=== PATIENT | male | born 1985 | race Caucasian/White ===

== ENCOUNTER 2019-07-20 13:44 | Emergency (ER) | payer OTHER ==
[2019-07-20] MEDS ORDERED: LORazepam 1 MG TAB PO STA (14:10)
--- NOTE | 2019-07-20 14:34 | ED ---
General Adult HPI - General Source: patient, police, EMS, RN notes reviewed, old records reviewed Mode of arrival: EMS Limitations: no limitations <Roc Urbina - Last Filed: 07/20/19 23:06> <Yao Olivo - Last Filed: 07/21/19 11:22> - General Chief complaint: Psychiatric Symptoms Stated complaint: Suicdal Time Seen by Provider: 07/20/19 14:03 - History of Present Illness Initial comments: 34-year-old male patient passed no history of hepatitis C, psychiatric disorders presents to ED for chief complaint of depression, suicidal ideations. Patient reports that he has been depressed for a long period of time. Reports that he has not taken his psychiatric medications in 1 week. Reports that he had a plan to hurt himself using a knife on his forearms. Denies any homicidal ideations. Denies any action to hurt himself or hurt any other people. Complains of feeling very anxious. Denies any physical complaints. Systemic: Pt denies fatigue, fever/chills, rash. Pt denies weakness, night sweats, weight loss. Neuro: Pt denies headache, visual disturbances, syncope or pre-syncope. HEENT: Pt denies ocular discharge or irritation, otalgia, rhinorrhea, pharyngitis or notable lymphadenopathy. Cardiopulmonary: Pt denies chest pain, SOB, heart palpitations, dyspnea on exertion. Abdominal/GI: Pt denies abdominal pain, n/v/d. : Pt denies dysuria, burning w/ urination, frequency/urgency. Denies new onset urinary or bowel incontinence. MSK: Pt denies myalgia, loss of strength or function in extremities. Neuro: Pt denies new onset weakness, paresthesias. (Roc Urbina) - Related Data Home Medications Medication Instructions Recorded Confirmed Gabapentin 800 mg PO TID 07/21/19 07/21/19 QUEtiapine [SEROquel] 400 mg PO HS 07/21/19 07/21/19 buPROPion HCL [Wellbutrin XL] 300 mg PO DAILY 07/21/19 07/21/19 Allergies Allergy/AdvReac Type Severity Reaction Status Date / Time fluphenazine [From Prolixin] Allergy Swelling Verified 07/21/19 09:28 haloperidol [From Haldol] Allergy Swelling Verified 07/21/19 09:28 Review of Systems ROS Other: All systems not noted in ROS Statement are negative. <Roc Urbina - Last Filed: 07/20/19 23:06> ROS Other: All systems not noted in ROS Statement are negative. <Yao Olivo - Last Filed: 07/21/19 11:22> ROS Statement: Those systems with pertinent positive or pertinent negative responses have been documented in the HPI. Past Medical History Past Medical History: Asthma Additional Past Medical History / Comment(s): hep c History of Any Multi-Drug Resistant Organisms: None Reported Past Surgical History: No Surgical Hx Reported Past Psychological History: Bipolar Smoking Status: Current every day smoker Past Alcohol Use History: Unable to Obtain Past Drug Use History: Unable to Obtain <Roc Urbina - Last Filed: 07/20/19 23:06> General Exam Limitations: no limitations <Roc Urbina - Last Filed: 07/20/19 23:06> - General Exam Comments Initial Comments: Constitutional: NAD, AOX3, Pt has pleasant affect. HEENT: NC/AT, trachea midline, neck supple, no lymphadenopathy. Posterior pharynx non erythematous, without exudates. External ears appear normal, without discharge. Mucous membranes moist. Eyes PERRLA, EOM intact. There is no scleral icterus. No pallor noted. Cardiopulmonary: RRR, no murmurs, rubs or gallops, no JVD noted. Lungs CTAB in anterior and posterior davies. No peripheral edema. Abdominal exam: Abdomen soft and non-distended. Abdomen non-tender to palpation in all 4 quadrants. Bowel sounds active in LLQ. No hepatosplenomegaly. No ecchymosis Neuro: CN II-XII grossly intact. No nuchal rigidity. No raccon eyes, no coates sign, no hemotympanum. No cervical spinal tenderness. MSK: No posterior calf tenderness bilaterally, homans sign negative bilaterally. Posterior tibialis and radial pulse +2 bilaterally. Sensation intact in upper and lower extremities. Full active ROM in upper and lower extremities, 5/5 streg nth. (Roc Urbina) Course <Yao Olivo - Last Filed: 07/21/19 11:22> Vital Signs 07/20/19 07/20/19 07/20/19 14:11 17:07 20:12 Temperature 98.9 F 96.4 F L 96.6 F L Pulse Rate 57 L 60 Respiratory 18 18 Rate Blood Pressure 95/62 115/70 O2 Sat by Pulse 98 99 Oximetry 07/20/19 07/20/19 22:53 23:13 Temperature 97.8 F Pulse Rate 56 L Respiratory 18 Rate Blood Pressure 110/56 O2 Sat by Pulse 98 Oximetry - Reevaluation(s) Reevaluation #1: 07/20/19 19:03 I did try evaluation the patient I did review the charting and did fill out a clinical cert. (Yao Olivo) Reevaluation #2: 07/21/19 11:21 The patient did rest comfortably in emergency department throughout the night an d account liaison was less than cooperative with evaluation however. Patient will be transferred to an outside facility for inpatient treatment. (Yao Olivo) Medical Decision Making <Roc Urbina - Last Filed: 07/20/19 23:06> - Lab Data Result diagrams: 07/21/19 09:06 07/21/19 09:06 <Yao Olivo - Last Filed: 07/21/19 11:22> - Medical Decision Making 84-year-old male patient presents to ED complaining of suicidal ideations. Bon es any physical complaints. Physical exam densely acute pathology. Patient did became agitated and was administered Ativan and Geodon. Patient is pending EPS evaluation. Signed out to Dr. Saenz. (Roc Urbina) - Lab Data Lab Results 07/21/19 07/21/19 Range/Units 09:06 09:06 WBC 5.6 (3.8-10.6) k/uL RBC 5.90 (4.30-5.90) m/uL Hgb 17.3 (13.0-17.5) gm/dL Hct 50.0 (39.0-53.0) % MCV 84.6 (80.0-100.0) fL MCH 29.3 (25.0-35.0) pg MCHC 34.6 (31.0-37.0) g/dL RDW 12.9 (11.5-15.5) % Plt Count 203 (150-450) k/uL Neutrophils % 67 % Lymphocytes % 23 % Monocytes % 5 % Eosinophils % 2 % Basophils % 1 % Neutrophils # 3.7 (1.3-7.7) k/uL Lymphocytes # 1.3 (1.0-4.8) k/uL Monocytes # 0.3 (0-1.0) k/uL Eosinophils # 0.1 (0-0.7) k/uL Basophils # 0.0 (0-0.2) k/uL Sodium 138 (137-145) mmol/L Potassium 4.0 (3.5-5.1) mmol/L Chloride 106 (98-107) mmol/L Carbon Dioxide 24 (22-30) mmol/L Anion Gap 8 mmol/L BUN 16 (9-20) mg/dL Creatinine 0.84 (0.66-1.25) mg/dL Est GFR (CKD-EPI)AfAm >90 (>60 ml/min/1.73 sqM) Est GFR (CKD-EPI)NonAf >90 (>60 ml/min/1.73 sqM) Glucose 114 H (74-99) mg/dL Calcium 9.3 (8.4-10.2) mg/dL Magnesium 2.0 (1.6-2.3) mg/dL Total Bilirubin 0.9 (0.2-1.3) mg/dL AST 96 H (17-59) U/L ALT 159 H (21-72) U/L Alkaline Phosphatase 75 (38-126) U/L Total Protein 7.5 (6.3-8.2) g/dL Albumin 4.4 (3.5-5.0) g/dL Disposition <Roc Urbina - Last Filed: 07/20/19 23:06> - Out of Hospital Transfer - Req. Specs Out of Hospital Transfer - Requested Specifics: Psychiatric Non-ICU <Yao Olivo - Last Filed: 07/21/19 11:22> Clinical Impression: Depression, Suicidal ideation Disposition: TRANSFER TO PSYCH HOSP/UNIT Condition: Stable Referrals: None,Stated [Primary Care Provider] - 1-2 days
[2019-07-20] MEDS ORDERED: LORazepam 2 MG/ML INJ IM STA ×3 (16:05→21:03)
[2019-07-20] MEDS ORDERED: diphenhydrAMINE 50 MG/ML 1 ML VIAL IM STA (20:22)
[2019-07-20] MEDS ORDERED: ZIPRASIDONE 20 MG VIAL IM STA (20:30)
[2019-07-20 22:55] VITALS: BP 110/56; PULSE 56
[2019-07-20 23:11] VITALS: RESP 18
[2019-07-20 23:13] VITALS: TEMP 97.8
[2019-07-21 09:29] LABS: Basophils % (A) 1 %; Eosinophils # (A) 0.1 k/uL (0-0.7); Eosinophils % (A) 2 %; HGB 17.3 gm/dL (13.0-17.5); Lymphocytes # (A) 1.3 k/uL (1.0-4.8); Lymphocytes % (A) 23 %; MCH 29.3 pg (25.0-35.0); MCHC 34.6 g/dL (31.0-37.0); MCV 84.6 fL (80.0-100.0); Mean Platelet Volume 7.3; Monocytes # (A) 0.3 k/uL (0-1.0); Monocytes % (A) 5 %; Neutrophils # (A) 3.7 k/uL (1.3-7.7); Neutrophils % (A) 67 %; Platelet Count 203 k/uL (150-450); RDW 12.9 % (11.5-15.5); WBC 5.6 k/uL (3.8-10.6)
[2019-07-21 09:33] LABS: African American GFR (CKD) >90 (>60 ml/min/1.73 sqM); Albumin 4.4 g/dL (3.5-5.0); Anion Gap 8 mmol/L; Blood Urea Nitrogen 16 mg/dL (9-20); Calcium 9.3 mg/dL (8.4-10.2); Carbon Dioxide 24 mmol/L (22-30); Chloride 106 mmol/L (98-107); Glucose 114 mg/dL (74-99); Non-African American GFR(CKD) >90 (>60 ml/min/1.73 sqM); Sodium 138 mmol/L (137-145); Total Bilirubin 0.9 mg/dL (0.2-1.3); Total Protein 7.5 g/dL (6.3-8.2)
[2019-07-21 09:34] LABS: ALT 159 U/L (21-72); AST 96 U/L (17-59); Alkaline Phosphatase 75 U/L (38-126)
[2019-07-21] MEDS ORDERED: LORazepam 1 MG TAB PO STA ×2 (11:46→12:01)
== END 2019-07-21 12:34 ==
LOC: EC 13:44
DX: F32.9 Major depressive disorder, single episode, unspecified (principal); R45.851 Suicidal ideations; F17.200 Nicotine dependence, unspecified, uncomplicated; Z88.8 Allergy status to other drugs, medicaments and biological substances; Z79.899 Other long term (current) drug therapy
CPT/HCPCS: 82075; 36415; 80053; 83735; 85025; 99285; 96372 ×3; J2060; J3486

== ENCOUNTER 2023-01-03 14:56 | Emergency (ER) | payer OTHER ==
[2023-01-03 15:12] VITALS: BP 124/80; PULSE 63; RESP 18; TEMP 98.2
[2023-01-03] MEDS ORDERED: busPIRone HCl 10 MG TAB PO STA (16:03)
[2023-01-03] MEDS ORDERED: KETOROLAC 15 MG/ML 1 ML VIAL IM STA (16:03)
[2023-01-03] MEDS ORDERED: buPROPion XL 150 MG TAB.ER.24H PO ONE (16:03)
[2023-01-03] MEDS ORDERED: AMOXIC-POT CLAV 875-125MG 1 EACH TAB PO STA (16:07)
--- NOTE | 2023-01-03 16:53 | ED ---
ENT HPI - General Chief complaint: Dental/Oral Stated complaint: Tooth issues Time Seen by Provider: 01/03/23 15:39 Source: patient, RN notes reviewed Mode of arrival: ambulatory Limitations: no limitations - History of Present Illness Initial comments: This is a 37-year-old male who presents to the emergency department for a dental abscess. States that he has a history of recurrent dental abscesses and this one started a couple of days ago. He presents from [facility], who started him on Augmentin. He has been on Augmentin for 1 day, but is concerned that it may be getting worse. States that this is very painful and topical benzocaine has not been effective. Denies any fevers or chills. Denies any fevers, chills, sore throat, cough, dyspnea, chest pain, palpitations, abdominal pain, nausea, vomiting, diarrhea, back pain, or headaches. MD complaint: tooth pain - Related Data Home Medications Medication Instructions Recorded Confirmed ARIPiprazole [Abilify] 2 mg PO DAILY@0615 01/03/23 01/03/23 Acetaminophen Tab [Tylenol] 650 mg PO QID 01/03/23 01/03/23 Albuterol Sulfate [Ventolin HFA] 2 puff INHALATION RT-QID 01/03/23 01/03/23 Amoxic-Pot Clav 875-125Mg 1 tab PO BID@0600,1800 01/03/23 01/03/23 [Augmentin 875-125] Calcium Carb/Mag Ox/Zinc Sulf 1 tab PO TID PRN 01/03/23 01/03/23 [Yod-Uvl-Nxxl 334-134-5 mg Tab] Chlorpheniramine Maleate 4 mg PO Q4H PRN 01/03/23 01/03/23 [Chlor-Trimeton] Escitalopram [Lexapro] 20 mg PO DAILY@15 01/03/23 01/03/23 Fluticasone Nasal [place] [Flonase 1 spray EA NOSTRIL DAILY@61401/03/23 01/03/23 Nasal [place]] Ibuprofen [Motrin Ib] 600 mg PO Q6HR PRN 01/03/23 01/03/23 Multivitamins, Thera [Multivitamin 1 tab PO DAILY PRN 01/03/23 01/03/23 (formulary)] QUEtiapine FUMARATE [SEROquel] 300 mg PO HS 01/03/23 01/03/23 QUEtiapine [SEROquel] 100 mg PO BID@0615,1630 01/03/23 01/03/23 Thiamine [Vitamin B-1] 100 mg PO DAILY 01/03/23 01/03/23 buPROPion XL [Wellbutrin XL] 450 mg PO DAILY@0615 01/03/23 01/03/23 buprenorphine HCL [Subutex] See Taper SUBLINGUAL DAILY 01/03/23 01/03/23 busPIRone HCL [Buspar] 30 mg PO BID@0615,1630 01/03/23 01/03/23 ondansetron HCL [Zofran] 8 mg PO Q6H PRN 01/03/23 01/03/23 Previous Rx's Medication Instructions Recorded Chlorhexidine Gluconate [Peridex] 15 ml PO BID #473 ml 01/03/23 Ibuprofen [Motrin] 800 mg PO Q8H PRN #20 tab 01/03/23 Allergies Allergy/AdvReac Type Severity Reaction Status Date / Time Fish Containing Products Allergy Unknown Verified 01/03/23 16:42 [Fish] fluphenazine [From Prolixin] Allergy Swelling Verified 01/03/23 16:42 haloperidol [From Haldol] Allergy Swelling Verified 01/03/23 16:42 shellfish derived [Shellfish] Allergy Unknown Verified 01/03/23 16:42 Review of Systems ROS Statement: Those systems with pertinent positive or pertinent negative responses have been documented in the HPI. ROS Other: All systems not noted in ROS Statement are negative. Past Medical History Past Medical History: Asthma Additional Past Medical History / Comment(s): hep c History of Any Multi-Drug Resistant Organisms: None Reported Past Surgical History: No Surgical Hx Reported Past Psychological History: Bipolar Smoking Status: Current every day smoker Past Alcohol Use History: Unable to Obtain Past Drug Use History: Unable to Obtain General Exam Limitations: no limitations General appearance: alert, in no apparent distress Head exam: Present: atraumatic, normocephalic ENT exam: Present: other (Dental abscess to the right lower jaw. There is no elevation of the tongue or swelling to the floor of the mouth. Multiple dental caries.) Respiratory exam: Present: normal lung sounds bilaterally. Absent: respiratory distress, wheezes, rales, rhonchi, stridor Cardiovascular Exam: Present: regular rate, normal rhythm, normal heart sounds. Absent: systolic murmur, diastolic murmur, rubs, gallop, clicks Neurological exam: Present: alert, oriented X3, CN II-XII intact Psychiatric exam: Present: normal affect, normal mood Skin exam: Present: warm, dry, intact, normal color. Absent: rash Course Vital Signs 01/03/23 15:10 Temperature 98.2 F Pulse Rate 63 Respiratory 18 Rate Blood Pressure 124/80 O2 Sat by Pulse 97 Oximetry Procedures - Incision & Drainage Consent Obtained: verbal consent Indication: abscess Site: other (dental abscess) Scalpel Used: #11 Irrigation Performed?: Yes I&D Drainage Obtained: Pus, Blood Medical Decision Making - Medical Decision Making This is a 37-year-old male who presents to the emergency department for concerns of a dental abscess. Was pt. sent in by a medical professional or institution? @ -[facility] Did you speak to anyone other than the patient for history? @ -No Did you review nursing and triage notes? @ -Yes, and I agree, it is accurate with regards to the patient's symptoms. Were old charts reviewed? @ -No Differential Diagnosis? @ -Differential Dental Pain: Dental abscess, chipped tooth, dental carries, mera's angina, trigeminal ne uralgia, this is not meant to be an all-inclusive list. EKG interpreted by me (3pts min.)? @ -Not obtained X-rays interpreted by me (1pt min.)? @ -Not obtained CT interpreted by me (1pt min.)? @ -Not obtained U/S interpreted by me (1pt. min.)? @ -Not obtained What testing was considered but not performed? (CT, X-rays, U/S, labs)? Why? @ -None What meds were considered but not given? Why? @ -None Did you discuss the management of the patient with other professionals? @ -No Did you reconcile home meds? @ -No Was smoking cessation discussed for >3mins.? @ -No Was critical care preformed (if so, how long)? @ -No Were there social determinants of health that impacted care today? How? (Homelessness, low income, unemployed, alcoholism, drug addiction, transportation, low edu. Level, literacy, decrease access to med. care, [place] [facility], rehab)? @ -No Was there de-escalation of care discussed even if they declined? (Discuss DNR or withdrawal of care, Hospice)? @ -No What co-morbidities impacted this encounter? (DM, HTN, Smoking, COPD, CAD, Cancer, CVA, Hep., AIDS, mental health diagnosis, sleep apnea, morbid obesity)? @ -None Was patient admitted / discharged? @ -Discharged. After in-depth discussion took place, patient was agreeable to drainage of the abscess. Patient's mouth was numbed with Hurricaine spray and an 11 blade scalpel was used to make a very small incision. A large amount of purulent drainage was immediately expelled. His mouth was irrigated multiple times. Patient notes that he did start to feel better after drainage and the abscess was notably smaller. Given that he is only been on Augmentin for one day at this point, he is instructed to continue taking this as prescribed. [facility] is also able to switch antibiotics if needed. Prescription for ibuprofen provided with dosing instructions reviewed. He also requested a prescription for chlorhexidine mouthwash. States that he usually uses this with dental abscesses and finds it effective. This was subsequently prescribed with initial dose given in the emergency department. He was also given a list of several local dentists. He is instructed to become established for ongoing dental care. Undiagnosed new problem with uncertain prognosis? @ -None Drug Therapy requiring intensive monitoring for toxicity (Heparin, Nitro, Insulin, Cardizem)? @ -None Were any procedures done? @ -Yes, I&D of dental abscess Diagnosis/symptom? @ -Dental abscess Acute, or Chronic, or Acute on Chronic? @ -Acute Uncomplicated (without systemic symptoms) or Complicated (systemic symptoms)? @ -Uncomplicated Side effects of treatment? @ -None Exacerbation, Progression, or Severe Exacerbation] @ -Not applicable Poses a threat to life or bodily function? @ -No Return precautions reviewed in depth, the patient is instructed to return to the emergency department with any new, worsening, or concerning symptoms. Patient verbalized understanding. This case was discussed in detail with the attending ED physician, Dr. Chaidez. Presentation, findings, and treatment plan discussed in detail as well. Disposition Clinical Impression: Dental abscess Disposition: HOME SELF-CARE Instructions (If sedation given, give patient instructions): Dental Abscess (ED) Additional Instructions: Return to the emergency department with any new, worsening, or concerning symptoms. Continue taking the Augmentin as prescribed. Alternate with ibuprofen and Tylenol as needed for pain relief. Use the mouthwash twice daily for the next several days. Review the provided list of dentists and try to become established for ongoing management as soon as possible. Follow up with your primary care provider in 1-2 days. Prescriptions: RX: Ibuprofen [Motrin] 800 mg PO Q8H PRN #20 tab PRN Reason: Pain RX: Chlorhexidine Gluconate [Peridex] 15 ml PO BID #473 ml Is patient prescribed a controlled substance at d/c from ED?: No Referrals: None,Stated [Primary Care Provider] - 1-2 days
[2023-01-03] MEDS ORDERED: AMOXIC-POT CLAV 875MG STARTER PACK 2 TAB BTL PO STA (16:57)
[2023-01-03] MEDS ORDERED: IBUPROFEN 600 MG STARTER PACK 4 TAB BTL PO STA (16:57)
[2023-01-03] MEDS ORDERED: BENZOCAINE SPRAY 1 CAN MUCOUS MEM ONE (17:24)
[2023-01-03] MEDS ORDERED: ONDANSETRON ODT 4 MG TAB PO STA (17:48)
[2023-01-03] MEDS ORDERED: ONDANSETRON 4 MG ODT STARTER PACK 2 TAB BTL PO STA (18:17)
[2023-01-03] MEDS ORDERED: CHLORHEXIDINE GLUCONATE 15 ML CUP MUCOUS MEM ONE (18:30)
== END 2023-01-03 18:39 | disposition home or self-care (01) ==
LOC: EC 14:56
DX: K04.7 Periapical abscess without sinus (principal); K02.9 Dental caries, unspecified; J45.909 Unspecified asthma, uncomplicated; F31.9 Bipolar disorder, unspecified; F17.200 Nicotine dependence, unspecified, uncomplicated; Z79.51 Long term (current) use of inhaled steroids; Z79.899 Other long term (current) drug therapy; Z88.8 Allergy status to other drugs, medicaments and biological substances; Z91.013 Allergy to seafood
CPT/HCPCS: 41800; 99283; 96372; J1885